=== PATIENT | female | born 1945 | race Caucasian/White ===

== ENCOUNTER → 2018-06-13 | Outpatient (CLI) | payer OTHER | LOC: M.RAD 09:18 | DX: Z12.31 Encounter for screening mammogram for malignant neoplasm of breast (principal) ==

== ENCOUNTER → 2019-06-18 | Outpatient (CLI) | payer OTHER | LOC: M.RAD 09:20 | DX: Z12.31 Encounter for screening mammogram for malignant neoplasm of breast (principal) ==

== ENCOUNTER 2019-12-15 06:28 | Inpatient (IN) | payer OTHER ==
[2019-12-03 09:03] LABS: URINE BILIRUBIN NEGATIVE (Negative); URINE BLOOD NEGATIVE (Negative); URINE CLARITY CLEAR; URINE COLOR YELLOW; URINE GLUCOSE-RANDOM NEGATIVE (Negative); URINE KETONES NEGATIVE (Negative); URINE LEUKOCYTES-REFLEX 1+ (Negative); URINE NITRITE-REFLEX NEGATIVE (Negative); URINE PROTEIN NEGATIVE (Negative); URINE SPECIFIC GRAVITY >= 1.030 (1.005-1.030)
[2019-12-03 09:06] LABS: HEMATOCRIT 39.1 % (37.0-47.0); HEMOGLOBIN 13.4 gm/dL (12.0-15.0); MCH 31.8 pg (26.0-34.0); MCHC 34.3 g/dL (28.0-37.0); MCV 92.7 fL (80.0-100.0); MPV 6.4 fl. (7.2-11.1); RBC 4.22 mil/uL (4.20-5.00); WBC 7.5 thou/uL (4.0-11.0)
[2019-12-03 09:10] LABS: CASTS None Seen /LPF (None Seen); CRYSTALS None Seen /LPF (None Seen); MUCUS 4-6 Moderate strn/LPF (None Seen); SQUAMOUS 4-10 Moderate /LPF (0-3); URINE RBC 0-2 Rare /HPF (0-2); URINE WBC-REFLEX 6-15 Few /HPF (0-5)
[2019-12-03 09:12] LABS: INR 1.1; PROTIME 10.9 Seconds (9.20-11.50)
[2019-12-03 09:16] LABS: ALBUMIN 3.7 g/dL (3.4-5.0); CALCIUM 8.9 mg/dL (8.5-10.1); POTASSIUM 4.1 mmol/L (3.5-5.1); TOTAL BILIRUBIN 1.2 mg/dL (<0.1-1.0)
[~2019-12-15] VITALS: Ht 165.1 cm; Wt 83.9 kg
--- NOTE | ~2019-12-15 | OP ---
[facility] [address] [place] [address] OPERATIVE REPORT Name: LARIOSROSSY Meredith Room: [address] IN [facility]#: [id number] Admission: 12/15/19 Attend Phys: Karlo Kasper Discharge: Date of : 41 Report #: [id number] THIS REPORT FOR: //name// cc: Mary Cheung MD, Katrina MD ~ THIS REPORT FOR: //name// CC: Mary Woods DATE OF SERVICE: 12/15/2019 PREOPERATIVE DIAGNOSIS: Left hip osteoarthritis. POSTOPERATIVE DIAGNOSIS: Left hip osteoarthritis. PROCEDURE: Left total hip arthroplasty. SURGEON: Emeterio Hood II, DO. TECHNICIAN INVENTORY SPECIALIST: JUANIS Grey. ANESTHESIA: General endotracheal. ESTIMATED BLOOD LOSS: 200 mL. ANTIBIOTICS: Ancef preoperatively. DRAINS: Medium Hemovac. COMPLICATIONS: None. CONDITION OF THE PATIENT: Stable to recovery room. IMPLANTS: Listed in operative record and progress note. BRIEF HISTORY: The patient was seen in the preoperative area. Preoperative history and physical was performed. Site was marked, questions were answered. Risks and benefits were discussed with the patient in detail about surgery. The patient wished to proceed, assuming all risks. OPERATIVE PROCEDURE: The patient was taken to the operative suite and placed supine on the operating table, given appropriate anesthesia. The patient's operative hip was placed in the [place] table leg hicks and sterilely prepped and draped in the supine position. Surgery began by longitudinal incision over the [address] [place] [address] OPERATIVE REPORT Name: HARRIETROSSY A Room: [address] ..#: [id number] Admission: 12/15/19 Attend Phys: Karlo Kasper Discharge: Date of : 41 Report #: [id number] anterior portion of the hip. This was carried down to the subcutaneous tissues. A small martin was made in the tensor fascia. It was then split along its fibers and retracted laterally. An H capsulotomy was then performed and careful hemostasis was maintained with electrocautery and Aquamantys. The head and neck cutting alignment guide was then checked with fluoroscopic guidance. Appropriate cut was made in the head and neck and this was removed. Attention was turned to the acetabulum. Excess labrum was removed. It was then reamed in sequential fashion up to appropriate size. This was shown to have excellent bleeding bone in excellent position on fluoroscopic guidance. The acetabular cup was then malleted into position and secured with cancellous screws. Metal liner was then applied. The patient's leg was then rotated and extended in the [place] table to expose the femur. It was then broached in sequential fashion up to appropriate size. The appropriate neck was then trialed with appropriate head length and showed excellent fit and fill and excellent stability of the hip throughout all range of motion. These trials were then removed and the final stem was then malleted into position and the final head and neck were then malleted into position. It was reduced in appropriate fashion, checked with C-arm for appropriate leg length and showed excellent leg length throughout the exam without evidence of dislocation upon range of motion and shuck testing. Wound was then copiously irrigated. Hemostasis was obtained with electrocautery and Aquamantys. Pain cocktail was injected. PRP gel sprayed all aspects of the hip and drain was activated. The H capsulotomy was then closed with #1 Vicryl in figure-of-8 fashion. Tensor fascia was closed with #1 Vicryl in running fashion. Skin was closed with 2-0 Vicryl and running 3-0 Monocryl. Dermabond and sterile dressing applied. The patient transferred to recovery room in stable condition. Counts were correct throughout the procedure. By: [id number] Hood II, DO /nt
[~2019-12-15 06:28] MED LIST: FELODIPINE 5 MG5 M1 PO; LEVOXYL112 MCG PO; LOSARTAN POTAS100 MG PO; NAPROXEN SODIU220 M2 PO; OXYBUTYNIN CHLO15 MG PO; TYLENOL PM EX-1 EACH PO; ZOCOR 10 MG TAB10 M1 PO
[2019-12-15 07:20] VITALS: BP 130/64
[2019-12-15 14:05] VITALS: BP 121/47
--- NOTE | 2019-12-15 14:11 | NUR ---
PT ADMITTED TO UNIT POST OP HIP SURGERY. PT ORIENTED TO ROOM. FAMILY AT BEDSIDE. PAIN MEDS GIVEN ORDERED. FALL RISK PRECAUTIONS IN PLACE. WILL CONTINUE TO MONITOR.
[2019-12-15 16:00] VITALS: BP 132/56
--- NOTE | 2019-12-15 17:07 | NUR ---
PT REMAINED ALERT AND ORIENTED. PT RESTING IN BED, PAIN MEDS GIVEN ORDERED. FALL RISK PRECAUTIONS IN PLACE. PT VOIDED 50 MLS, WILL CONTINUE TO MONITOR OUTPUT. HOURLY ROUNDING COMPLETED. WILL CONTINUE TO MONITOR.
[2019-12-15 21:00] VITALS: BP 137/71
[2019-12-16] VITALS: BP 144/73
[2019-12-16 04:09] VITALS: BP 119/70
[2019-12-16 04:44] LABS: HEMATOCRIT 28.1 % (37.0-47.0)
[2019-12-16 07:30] VITALS: BP 109/56
[2019-12-16] MEDS ORDERED: XARELTO10 MG PO (07:30)
[2019-12-16] MEDS ORDERED: COLACE 100 MG100 MG PO (07:30)
[2019-12-16 10:03] VITALS: BP 109/56
[2019-12-16] MEDS ORDERED: PERCOCET 5-3251 EACH PO (12:30)
--- NOTE | 2019-12-16 13:03 | NUR ---
CM ASSESSMENT:PT LIVES AT HOME WITH HER . SHE HAS A WALKER AT HOME. SHE IS INDEPENDENT WITH ADLS. SHE PREFERS [facility] FOR [facility]. REFERRAL SENT.
--- NOTE | 2019-12-16 13:25 | NUR ---
RX FOR XARELTO CALLED IN TO [facility]. DANIELLE IS $18.18. PT NOTIFIED OF DANIELLE
[2019-12-16 13:31] VITALS: BP 109/56
[2019-12-16 13:46] VITALS: BP 109/56
--- NOTE | 2019-12-16 13:51 | NUR ---
PT GIVEN DISCHARGE INFORMtion care notes and prescriptions. iv removed. PT BELONGINGS GATHERED. PT ELFT VIA WHEELCHAIR WITH NURISNG STAFF TO HOME WITH HOME HEALTH.
== END 2019-12-16 13:52 | disposition home health service (06) | DRG 470 ==
LOC: M.PRE 06:28 → M.TBA 06:49 → M.PRE 08:39 → M.ORTHSURG 12:31 → M.PRE 15:46 → M.ORTHSURG 12-16 13:52
PROVIDERS: Orthopaedic Surgery; ADMIT Internal Medicine
PROC: 0SRB03Z Replacement of Left Hip Joint with Ceramic Synthetic Substitute, Open Approach (ICD-10-PCS; principal; 2019-12-15)
DX: M16.12 Unilateral primary osteoarthritis, left hip (principal); D62 Acute posthemorrhagic anemia; M17.4 Other bilateral secondary osteoarthritis of knee; Z96.651 Presence of right artificial knee joint; I10 Essential (primary) hypertension; E78.00 Pure hypercholesterolemia, unspecified; E03.9 Hypothyroidism, unspecified; E78.5 Hyperlipidemia, unspecified; Z79.899 Other long term (current) drug therapy; Z90.722 Acquired absence of ovaries, bilateral; Z90.49 Acquired absence of other specified parts of digestive tract; Z87.891 Personal history of nicotine dependence; Z90.710 Acquired absence of both cervix and uterus

== ENCOUNTER 2020-06-11 17:36 | Emergency (ER) | payer OTHER ==
[~2020-06-11] VITALS: Ht 162.6 cm; Wt 83.5 kg
[~2020-06-11 17:36] MED LIST changes: +COLACE 100 MG100 MG PO; +PERCOCET 5-3251 EACH PO; +XARELTO10 MG PO
[2020-06-11] MEDS ORDERED: FELODIPINE 5 MG5 M1 PO (17:48)
[2020-06-11] MEDS ORDERED: COZAAR 25 MG TA25 M1 PO (17:48)
[2020-06-11] MEDS ORDERED: LEVO-T100 MCG PO (17:49)
[2020-06-11] MEDS ORDERED: OXYBUTYNIN 5 MG5 M2 PO (17:49)
[2020-06-11 20:51] VITALS: BP 175/88
== END 2020-06-11 20:52 | disposition home or self-care (01) ==
LOC: M.ERS 17:36
DX: S06.0X0A Concussion without loss of consciousness, initial encounter (principal); I10 Essential (primary) hypertension; E78.00 Pure hypercholesterolemia, unspecified; Z90.89 Acquired absence of other organs; Z90.722 Acquired absence of ovaries, bilateral; Z90.49 Acquired absence of other specified parts of digestive tract; Z96.642 Presence of left artificial hip joint; Z96.653 Presence of artificial knee joint, bilateral; W01.0XXA Fall on same level from slipping, tripping and stumbling without subsequent striking against object, initial encounter; Y93.89 Activity, other specified; Y92.89 Other specified places as the place of occurrence of the external cause; Y99.8 Other external cause status

== ENCOUNTER → 2020-06-15 | Outpatient (CLI) | payer OTHER ==
[~2020-06-15] MED LIST changes: +COZAAR 25 MG TA25 M1 PO; +LEVO-T100 MCG PO; +OXYBUTYNIN 5 MG5 M2 PO
== END ==
LOC: M.RAD 09:39
PROVIDERS: ATTEND Family Medicine
DX: Z12.31 Encounter for screening mammogram for malignant neoplasm of breast (principal)

== ENCOUNTER → 2021-06-13 | Outpatient (CLI) | payer OTHER ==
[~2021-06-13] MED LIST changes: +DONEPEZIL HCL 55 M1 PO; +SERTRALINE HCL25 M1 PO; +ZOCOR 10 MG TAB10 MG PO
--- NOTE | 2021-06-13 12:35 | 2DMMODE ---
[place] [address] 2 D/M-MODE ECHOCARDIOGRAM Name: ROSSY LARIOS Meredith Room: [facility]#: [id number] Admission: 06/13/21 Attend Phys: Radha Muhammad Discharge: Date of : 41 Date of Service: 06/13/21 1234 Report #: [id number] THIS REPORT FOR: cc: Mary Cheung MD, Katrina MD Liston, Michael J. MD [facility] ~ APPROVED REPORT Study performed: 06/13/2021 07:52:44 EXAM: Comprehensive 2D, Doppler, and color-flow Echocardiogram Patient Location: Out-Patient BSA: 1.95 HR: 70 bpm BP: 130/80 mmHg Other Information Study Quality: Fair Indications Murmur 2D Dimensions IVSd: 8.80 (7-11mm) LVOT Diam: 20.05 (18-24mm) LVDd: 41.35 mm PWd: 10.08 (7-11mm) Ascending Ao: 28.00 (22-36mm) LVDs: 28.27 (25-40mm) Aortic Root: 28.46 mm Volumes Left Atrial Volume (Systole) LA ESV Index: 13.70 mL/m2 Aortic Valve AoV Peak Maik.: 2.98 m/s AO Peak Gr.: 35.43 mmHg LVOT Max P.79 mmHg AO Mean Gr.: 20.72 mmHg LVOT Mean P.82 mmHg LVOT Max V: 0.97 m/s AO V2 VTI: 63.60 cm LVOT Mean V: 0.62 m/s FREDERICK (VTI): 0.98 cm2 LVOT V1 VTI: 19.66 cm Mitral Valve E/A Ratio: 0.75 [place] [address] 2 D/M-MODE ECHOCARDIOGRAM Name: ROSSY LARIOS Room: [facility]#: [id number] Admission: 06/13/21 Attend Phys: Radha Muhammad Discharge: Date of : 41 Date of Service: 06/13/21 1234 Report #: [id number] MV Decel. Time: 261.06 ms MV E Max Maik.: 0.56 m/s MV PHT: 75.71 ms MVA (PHT): 2.91 cm2 TDI E/Lateral E': 5.60 E/Medial E': 8.00 Medial E' Maik.: 0.07 m/s Lateral E' Maik.: 0.10 m/s Pulmonary Valve PV Peak Maik.: 0.86 m/s PV Peak Gr.: 2.93 mmHg Tricuspid Valve RAP Estimate: 5.00 mmHg TR Peak Gr.: 15.68 mmHg RVSP: 20.68 mmHg PA Pressure: 20.68 mmHg Left Ventricle The left ventricle is normal size. Poor endocardial definition. No obvious wall motion abnormalities. There is normal left ventricular wall thickness. Left ventricular systolic function is grossly normal. LVEF is 55-60%. Grade I - abnormal relaxation pattern. Right Ventricle The right ventricle is normal size. The right ventricular systolic function is normal. Atria The left atrium size is normal. The right atrium size is normal. Aortic Valve Moderate aortic valve sclerosis. Mild aortic regurgitation. Moderate to severe aortic stenosis. Mitral Valve The mitral valve is normal in structure. There is no mitral valve regurgitation noted. No evidence of mitral valve stenosis. Tricuspid Valve The tricuspid valve is normal in structure. Mild tricuspid regurgitation. No pulmonary hypertension. Pulmonic Valve The pulmonary valve is normal in structure[place] [address] 2 D/M-MODE ECHOCARDIOGRAM Name: ROSSY LARIOS Room: [facility]#: [id number] Admission: 06/13/21 Attend Phys: Radha Muhammad Discharge: Date of : 41 Date of Service: 06/13/21 1234 Report #: [id number] valvular regurgitation. Great Vessels The aortic root is normal in size. IVC is normal in size and collapses >50% with inspiration. Pericardium There is no pericardial effusion. <Conclusion> Moderate aortic valve sclerosis. Mild aortic regurgitation. The left ventricle is normal size. There is normal left ventricular wall thickness. Left ventricular systolic function is grossly normal. LVEF is 55-60%. Grade I - abnormal relaxation pattern. Poor endocardial definition. No obvious wall motion abnormalities. Moderate aortic valve sclerosis. Mild aortic regurgitation. Moderate to severe aortic stenosis. Mild tricuspid regurgitation. No pulmonary hypertension. IVC is normal in size and collapses >50% with inspiration. <ELECTRONICALLY SIGNED> By: Preet Santos MD, FACC 06/13/21 1234 1234 1234 Preet Santos MD, FACC /INF
== END ==
LOC: M.CRD 07:56
PROVIDERS: ATTEND Nurse Practitioner Family
DX: I08.2 Rheumatic disorders of both aortic and tricuspid valves (principal); R01.1 Cardiac murmur, unspecified

== ENCOUNTER → 2021-06-13 | Outpatient (CLI) | payer OTHER ==
[2021-06-13 09:19] LABS: ABSOLUTE BASOPHILS 0.1 thou/uL (0.0-0.2); ABSOLUTE EOSINOPHILS 0.2 thou/uL (0.0-0.7); ABSOLUTE LYMPHOCYTES 2.4 thou/uL (0.8-5.3); ABSOLUTE MONOCYTES 0.7 thou/uL (0.0-1.2); ABSOLUTE NEUTROPHILS 4.9 thou/uL (1.6-8.1); BASOPHILS 0.9 %; EOSINOPHILS 2.4 %; HEMATOCRIT 39.1 % (37.0-47.0); HEMOGLOBIN 13.1 gm/dL (12.0-15.0); LYMPHOCYTES 28.6 %; MCH 31.1 pg (26.0-34.0); MCHC 33.5 g/dL (28.0-37.0); MCV 92.8 fL (80.0-100.0); MONOCYTES 8.9 %; MPV 6.1 fl. (7.2-11.1); NUCLEATED RBCS 0 /100WBC; PLATELET COUNT* 235 thou/uL (150-400); POLYS 59.2 %; RBC 4.21 mil/uL (4.20-5.00); RDW-CV 15.2 % (10.5-14.5); WBC 8.3 thou/uL (4.0-11.0)
[2021-06-13 09:46] LABS: CALCIUM 9.1 mg/dL (8.5-10.1); CREATININE 1.3 mg/dL (0.6-1.3); POTASSIUM 4.2 mmol/L (3.5-5.1)
[2021-06-13 09:56] LABS: URINE BILIRUBIN NEGATIVE (Negative); URINE BLOOD TRACE (Negative); URINE CLARITY CLEAR; URINE COLOR YELLOW; URINE GLUCOSE-RANDOM NEGATIVE (Negative); URINE KETONES NEGATIVE (Negative); URINE LEUKOCYTES-REFLEX TRACE (Negative); URINE NITRITE-REFLEX NEGATIVE (Negative); URINE PROTEIN NEGATIVE (Negative); URINE SPECIFIC GRAVITY 1.025 (1.005-1.030); URINE UROBILINOGEN 0.2 E.U./dl (0.2-1.0)
[2021-06-13 09:59] LABS: PROTIME 10.7 Seconds (9.20-11.50)
[2021-06-13 10:05] LABS: BACTERIA-REFLEX 1-9 Few /HPF (None Seen); CASTS None Seen /LPF (None Seen); CRYSTALS None Seen /LPF (None Seen); MUCUS 0-3 Light strn/LPF (None Seen); SQUAMOUS 4-10 Moderate /LPF (0-3); URINE RBC 0-2 Rare /HPF (0-2); URINE WBC-REFLEX 0-5 Rare /HPF (0-5)
--- NOTE | 2021-06-13 11:39 | EKG ---
[place] [address] ELECTROCARDIOGRAM REPORT Name: ROSSY LARIOS Room: [facility]#: [id number] Admission: 06/13/21 Attend Phys: Emeterio Hood, Discharge: Date of : 41 Date of Service: 06/13/2158 Report #: [id number] THIS REPORT FOR: //name// [facility] Test Date: 2021-06-13 Test Time: 08:58:58 Pat Name: ROSSY LARIOS Department: Room: Gender: Wheel Installer: : 1945 Requested By: Emeterio Hood Order Number: [id number] Candy MD: Drew Chase Measurements Intervals [place] Rate: 63 P: 0 [place]: 128 QRS: -11 QRSD: 95 T: 39 QT: 387 QTc: 397 Interpretive Statements Sinus rhythm No previous ECG available for comparison Electronically Signed On 06-13-2021 11:39:35 CDT by Drew Chase [email or web address] <ELECTRONICALLY SIGNED> By: Drew Chase MD, [facility] 06/13/21 1139 0858 7 Drew Chase MD, FACC /EPI
== END ==
LOC: M.LAB
PROVIDERS: ATTEND Orthopaedic Surgery
DX: Z01.812 Encounter for preprocedural laboratory examination (principal); Z01.818 Encounter for other preprocedural examination; M16.11 Unilateral primary osteoarthritis, right hip

== ENCOUNTER → 2021-08-28 | Outpatient (CLI) | payer OTHER ==
[~2021-08-28] MED LIST changes: +COZAAR100 MG PO; +PAIN RELIEF325 MG PO; +VITAMIN B-121000 MC2 SUBLING
[2021-08-28 12:52] LABS: URINE BILIRUBIN NEGATIVE (Negative); URINE BLOOD NEGATIVE (Negative); URINE CLARITY CLEAR; URINE COLOR YELLOW; URINE GLUCOSE-RANDOM NEGATIVE (Negative); URINE KETONES TRACE (Negative); URINE LEUKOCYTES-REFLEX 1+ (Negative); URINE NITRITE-REFLEX NEGATIVE (Negative); URINE PROTEIN TRACE (Negative); URINE SPECIFIC GRAVITY >= 1.030 (1.005-1.030); URINE UROBILINOGEN 0.2 E.U./dl (0.2-1.0)
[2021-08-28 12:52] LABS: HEMATOCRIT 39.1 % (37.0-47.0); MCHC 33.2 g/dL (28.0-37.0); MCV 93.3 fL (80.0-100.0); RBC 4.19 mil/uL (4.20-5.00); RDW-CV 13.3 % (10.5-14.5); WBC 9.6 thou/uL (4.0-11.0)
[2021-08-28 13:02] LABS: SQUAMOUS >10 Many /LPF (0-3)
[2021-08-28 13:03] LABS: CASTS None Seen /LPF (None Seen); URINE RBC 3-10 Few /HPF (0-2)
[2021-08-28 13:04] LABS: BACTERIA-REFLEX 1-9 Few /HPF (None Seen); CRYSTALS None Seen /LPF (None Seen)
[2021-08-28 13:04] LABS: ALBUMIN 3.5 g/dL (3.4-5.0); CALCIUM 9.1 mg/dL (8.5-10.1); CREATININE 1.2 mg/dL (0.6-1.3); POTASSIUM 3.9 mmol/L (3.5-5.1); TOTAL BILIRUBIN 0.9 mg/dL (<0.1-1.0); TOTAL PROTEIN 6.9 g/dL (6.4-8.2)
[2021-08-28 13:07] LABS: PROTIME 10.7 Seconds (9.20-11.50)
== END ==
LOC: M.LAB 11:43
PROVIDERS: ATTEND Orthopaedic Surgery
DX: Z12.31 Encounter for screening mammogram for malignant neoplasm of breast (principal); M16.11 Unilateral primary osteoarthritis, right hip; N64.89 Other specified disorders of breast; Z20.4 Contact with and (suspected) exposure to rubella

== ENCOUNTER 2021-09-12 06:12 | Observation (INO) | payer OTHER ==
[~2021-09-12] VITALS: Ht 165.1 cm; Wt 84.8 kg
--- NOTE | ~2021-09-12 | OP ---
[facility] [address] [place] [address] OPERATIVE REPORT Name: ROSSY LARIOS Room: [address] [place]#: [id number] Admission: 09/12/21 Attend Phys: Karlo Kasper Discharge: Date of : 41 Report #: [id number] THIS REPORT FOR: cc: Mary Cheung MD, Katrina MD Greiner, Robert F. II DO ~ DATE OF SURGERY: 09/12/2021 PREOPERATIVE DIAGNOSIS: Right hip osteoarthritis. POSTOPERATIVE DIAGNOSIS: Right hip osteoarthritis. PROCEDURE: Right total hip arthroplasty. SURGEON: Emeterio Hood II, DO DRILLING ENGINEER: None. ANESTHESIA: General endotracheal. ESTIMATED BLOOD LOSS: 300 mL. ANTIBIOTICS: Ancef preoperatively. DRAINS: Medium Hemovac. COMPLICATIONS: None. CONDITION: The patient stable to recovery room. IMPLANTS: Listed in operative record and progress note. BRIEF HISTORY: The patient in the preoperative area. Preoperative H and P was performed. Site was marked, questions were answered. Risks and benefits were discussed with the patient about surgery. The patient wished to proceed assuming all risks. DESCRIPTION OF PROCEDURE: The patient was taken to operative suite, placed supine on the operating table, given appropriate anesthesia. The patient's operative hip was placed in the [place] table and sterilely prepped and draped in the supine position. Surgery began with a longitudinal incision over the anterior portion of the hip. This was carried down to subcutaneous tissues. A small martin was then made in tensor fascia. It was then split along its fibers and retracted laterally. An H capsulotomy was then performed and careful hemostasis was maintained with electrocautery and cautery wand. The head and neck cutting alignment guide was then checked [place] [address] OPERATIVE REPORT Name: ROSSY LARIOS Room: [address] Barbie Haney#: [id number] Admission: 09/12/21 Attend Phys: Karlo Kasper Discharge: Date of : 41 Report #: [id number] Appropriate cut was made to the head and neck and this was removed. Attention was turned to the acetabulum. Excess labrum was removed. It was then reamed in sequential fashion up to appropriate size. This showed excellent bleeding bone and excellent position on fluoroscopic guidance. The acetabular cup was then malleted into position and secured with cancellous screws. Metal liner was then applied. The patient's leg was then rotated and extended on the [place] table to expose the femur. It was then broached in sequential fashion up to appropriate size. Appropriate neck was then trialed with appropriate head length and showed excellent fit and fill and excellent stability of hip in all range of motion. These trials were then removed. The final stem was then malleted into position and the final head and neck was then malleted in position. It was reduced in appropriate fashion, checked with C-arm for appropriate leg length and shown to have excellent leg length throughout the exam without evidence of dislocation upon range of motion and shuck testing. Wound was copiously irrigated. Hemostasis was maintained with electrocautery and cautery wand. Pain cocktail was injected. H capsulotomy was then closed with 1 Vicryl in [id number] fashion. Tensor fascia was closed with #1 Vicryl in running fashion. Skin was closed with 2-0 Vicryl and a running 3-0 Monocryl. Dermabond dressing applied. The patient was transported to recovery in stable condition. Counts were correct throughout the procedure. By: 20 [id number] Hood II, DO /nt
[2021-09-12 19:57] VITALS: BP 101/67
[2021-09-12 23:48] VITALS: BP 135/82
[2021-09-13] VITALS (7 sets, daily range): BP systolic 103–134; BP diastolic 51–71
--- NOTE | 2021-09-13 04:03 | NUR ---
ASSUMED CARE OF PT 09/12/21 AT APPROX 1955. PT A&OX4, VSS ON 3L NC, CAPNO IN USE, IV FLUIDS INFUSING ORDERED, HEMO VAC IN PLACE, UP WITH ASSIST TO BSC. PRN PO PAIN MEDS REQUESTED AND GIVEN ORDERED. PT SLEEPING WELL, WILL CONTINUE TO MONITOR.
[2021-09-13 04:52] LABS: HEMATOCRIT 34.1 % (37.0-47.0); HEMOGLOBIN 11.6 gm/dL (12.0-15.0)
--- NOTE | 2021-09-13 16:33 | NUR ---
Case Management Assessment CM met with pt to complete assessment. Pt reports she resides with , daughter, and son in law in a home with three steps at the entry. Pt reported she would like to return home at discharge and has support in the home. Pt reported being independent with ADLs. Pt reported having a cane and walker. Pt reported services 2 years ago with an unknown agency. PT denied history of rehab or skilled services. CM to continue to follow.
[2021-09-14 00:09] VITALS: BP 113/46
--- NOTE | 2021-09-14 04:11 | NUR ---
PT A&OX4, VSS ON ROOM AIR, IV SALINE LOCKED, PT UP WITH ASSIST TO BSC, PRN PO PAIN MEDS REQUESTED AND GIVEN ORDERED, REPOSITIONED Q2H. PT SLEEPING WELL, WILL CONTINUE TO MONITOR.
[2021-09-14 04:15] LABS: HEMATOCRIT 30.2 % (37.0-47.0); HEMOGLOBIN 10.4 gm/dL (12.0-15.0)
[2021-09-14 08:40] VITALS: BP 117/62
[2021-09-14] MEDS ORDERED: XARELTO10 MG PO (12:50)
[2021-09-14 14:12] VITALS: BP 117/63
[2021-09-14 14:39] VITALS: BP 117/63
--- NOTE | 2021-09-14 18:04 | NUR ---
CM FOLLOWUP PT MEDICALLY CLEAR TO DISCHARGE. PT DISCHARGED WITH SERVICES PROVIDED BY [facility] ([phone]).CALL PLACED TO PT'S DAUGHTER TO INFORM/DISCUSS DISCHARGE, BUT NO CONTACT WAS MADE.
== END 2021-09-14 15:20 | disposition home health service (06) ==
LOC: M.ORTHSURG 06:12 → M.TBA 09:28 → EDSTATUS 10:34 → M.ORTHSURG 10:36 → M.3W 20:12
PROVIDERS: Orthopaedic Surgery; ADMIT Internal Medicine; ATTEND Internal Medicine
DX: M16.11 Unilateral primary osteoarthritis, right hip (principal); Z20.822 Contact with and (suspected) exposure to COVID-19; I10 Essential (primary) hypertension; Z79.899 Other long term (current) drug therapy